=== PATIENT | female | born 1990 | race Two or more races ===

== ENCOUNTER 2025-08-02 05:28 | Emergency (ER) | payer OTHER ==
[~2025-08-02] VITALS: Ht 162.6 cm; Wt 59.9 kg
[2025-08-02] MEDS ORDERED: KETOROLAC TROMETHAMINE 60 MG VIAL IM ONE ×2 (08:28→08:30)
== END 2025-08-02 11:30 | disposition home or self-care (01) ==
LOC: ER 05:55
DX: R22.1 Localized swelling, mass and lump, neck (principal)